=== PATIENT | male | born 1990 | race Caucasian/White ===

== ENCOUNTER 2018-03-26 08:51 | Emergency (ER) | payer BC ==
[~2018-03-26] VITALS: Ht 182.9 cm; Wt 90.7 kg
--- OUTSIDE RECORDS SUMMARY | 2018-03-26 08:54 | XMS REPORT | Encounter Summary ---
Author Organization Unknown Address [address] [place] [address] Phone [phone] Reason for Visit Medical Complaint Instructions 1. Acute bronchitis bronchitis: care instructions Bromfed DM 2 mg-30 mg-10 mg/5 mL syrup ProAir HFA 90 mcg/actuation aerosol inhaler Medrol (Ovi) 4 mg tablets in a dose pack 2. On examination - fever rapid strep group A, throat rapid flu (A+B) 3. Body mass index 25-29 - overweight learning about healthy weight 4. Elevated blood pressure elevated blood pressure: care instructions dash diet: care instructions blood pressure monitoring education 5. Smoker stopping smoking: care instructions Discussion Note: None recorded. Plan of Care Patient Instructions Your Care Instructions Bronchitis is inflammation of the bronchial tubes, which carry air to the lungs. The tubes swell and produce mucus, or phlegm. The mucus and inflamed bronchial tubes make you cough. You may have trouble breathing. Most cases of bronchitis are caused by viruses like those that cause colds. Antibiotics usually do not help and they may be harmful. Bronchitis usually develops rapidly and lasts about 2 to 3 weeks in otherwise healthy people. Follow-up care is a smith part of your treatment and safety. Be sure to make and go to all appointments, and call your doctor if you are having problems. It's also a good idea to know your test results and keep a list of the medicines you take. How can you care for yourself at home? Take all medicines exactly as prescribed. Call your doctor if you think you are having a problem with your medicine. Get some extra rest. Take an vjlv-bxf-aamyvaz pain medicine, such as acetaminophen (Tylenol), ibuprofen (Advil, Motrin), or naproxen (Aleve) to reduce fever and relieve body aches. Read and follow all instructions on the label. Do not take two or more pain medicines at the same time unless the doctor told you to. Many pain medicines have acetaminophen, which is Tylenol. Too much acetaminophen (Tylenol) can be harmful. Take an bwbc-nzs-tlcqhnt cough medicine that contains dextromethorphan to help quiet a dry, hacking cough so that you can sleep. Avoid cough medicines that have more than one active ingredient. Read and follow all instructions on the label. Breathe moist air from a humidifier, hot shower, or sink filled with hot water. The heat and moisture will thin mucus so you can cough it out. Do not smoke. Smoking can make bronchitis worse. If you need help quitting, talk to your doctor about stop-smoking programs and medicines. These can increase your chances of quitting for good. When should you call for help? Call 911 anytime you think you may need emergency care. For example, call if: You have severe trouble breathing. Call your doctor now or seek immediate medical care if: You have new or worse trouble breathing. You cough up dark brown or bloody mucus (sputum). You have a new or higher fever. You have a new rash. Watch closely for changes in your health, and be sure to contact your doctor if: You cough more deeply or more often, especially if you notice more mucus or a change in the color of your mucus. You are not getting better as expected. Reminders Provider Appointments None recorded. Lab Rapid Strep Group a, Throat 03/11/2018 [facility] Rapid Flu (A+B) 03/11/2018 [facility] Referral None recorded. Procedures None recorded. Surgeries None recorded. Imaging None recorded. Medications Name Start Date Bromfed DM 2 mg-30 mg-10 mg/5 mL syrup Take 10 mL every 4 hours by oral route. Medrol (Ovi) 4 mg tablets in a dose pack Take 1 dose pk by oral route. ProAir HFA 90 mcg/actuation aerosol inhaler Inhale 2 puffs every 4 hours by inhalation route. Medications Administered None recorded. Vitals Height Weight BMI Blood Pressure 6 ft 220 lbs 29.8 kg/m2 158/90 mm[Hg] Lab Results Date Name Specimen Result Interpretation Description Value Range Status Address Rapid Flu (A+B) Influenza a negative [facility]: [address] [place] [address] Influenza B negative [facility]: [address] [place] [address] Rapid Strep Group a, Throat Result negative [facility]: [address] [place] [address] Swab Location Left and Right tonsillar pillars [facility]: [address] [place] [address] Allergies Code Code System Name Reaction Severity Status Onset Sulfa (Sulfonamide Antibiotics) Active Problems No Known Problems Procedures Date Name Performed by Tonsillectomy Information not available Vaccine List Vaccine Type Tdap 01/02/2014 Social History Smoking Status Current Every Day Smoker Past Encounters 03/11/2018 Acute Bronchitis; On Examination - Fever; Body Mass Index 25-29 - Overweight; Elevated Blood Pressure; Smoker [facility], [facility] [address] [place] [address], Ph. History of Present Illness [id number] Reported By: Patient HPI: Location: head/sinuses, throat. Quality: productive cough, sore throat, nasal/sinus congestion. Duration: 4days. Severity: moderate. Onset/Timing: gradual. Context: no sick contacts, no foreign travel, smoker, asthma. Modifying factors: OTC medication. Associated Symptoms: no sputum production, no shortness of breath, no wheezing, no change in number of pillows needed to sleep at night, no sweats, no significant weight gain, no significant weight loss, no vomiting, no diarrhea, no rash, no nausea, no fever, no muscle aches, no headache, morning cough, sore throat Review of Systems:ROS as noted in the HPI Review of Systems Basic Reported By: Patient Physical Exam Adult Basic, Adult Male Complete Reported By: Patient Constitutional: General Appearance: healthy-appearing, well-nourished, well-developed, overweight. Level of Distress: NAD. Ambulation: ambulating normally Psychiatric: Mental Status: active and alert. Orientation: to time, to place, to person Wsq-Poao-Slaxo-Throat: Ears: no lesions on external ear, no outer ear tenderness, EACs clear, TMs clear. Hearing: no hearing loss. Nose: no lesions on external nose, nares patent, no septal deviation, nasal passages clear, no sinus tenderness, no nasal discharge. Lips, Teeth, and Gums: no mouth or lip ulcers, no bleeding gums, normal dentition. Oropharynx: moist mucous membranes, no erythema, no exudates, tonsils not enlarged Lungs: Respiratory effort: no dyspnea, no tachypnea, no use of accessory muscles, no intercostal retractions. Auscultation: breath sounds normal, good air movement Cardiovascular: Heart Auscultation: RRR, no murmurs
--- OUTSIDE RECORDS SUMMARY | 2018-03-26 08:54 | XMS REPORT | Continuity of Care Document ---
Author Author [facility] Interface Address Unknown Phone Unavailable Problems Problem Status Onset Date Classification Date Reported Comments Source Acute bronchitis 03/11/2018 Diagnosis 03/11/2018 [facility] Smoker 03/11/2018 Diagnosis 03/11/2018 [facility] On examination - fever 03/11/2018 Diagnosis 03/11/2018 [facility] Elevated blood pressure 03/11/2018 Diagnosis 03/11/2018 [facility] Body mass index 25-29 - overweight 03/11/2018 Diagnosis 03/11/2018 [facility] Discharge Diagnosis: Other hydrocele 06/08/2015 06/11/2015 [facility] TESTICULAR PAIN Active 06/08/2015 [facility] Testicular torsion<sup>1</sup> Resolved Problem 06/11/2015 age 6 [facility] Medications Medication Details Route Status Patient Instructions Ordering Provider Order Date Source Brompheniramine Maleate 0.4 MG/ML / Dextromethorphan Hydrobromide 2 MG/ML / Pseudoephedrine Hydrochloride 6 MG/ML Oral Solution [Bromfed DM] Bromfed DM 2 mg-30 mg-10 mg/5 mL syrup Take 10 mL every 4 hours by oral route. Active [facility] Medrol (Ovi) 4 mg tablets in a dose pack Medrol (Ovi) 4 mg tablets in a dose pack Take 1 dose pk by oral route. Active [facility] Albuterol 0.09 MG/ACTUAT Metered Dose Inhaler ProAir HFA 90 mcg/actuation aerosol inhaler Inhale 2 puffs every 4 hours by inhalation route. Active [facility] Allergies, Adverse Reactions, Alerts Substance Category Reaction Severity Reaction type Status Date Reported Comments Source Sulfa (Sulfonamide Antibiotics) Allergy to substance 03/11/2018 [facility] sulfa drugs Assertion Drug allergy Active [facility] Immunizations Immunization Date Given Site Status Last Updated Comments Source Tdap 01/02/2014 completed [facility] Results Order Name Results Value Reference Range Date Interpretation Comments Source Influenza A negative 03/11/2018 [facility] Influenza B negative 03/11/2018 [facility] RESULT negative 03/11/2018 [facility] SWAB LOCATION Left and Right tonsillar pillars 03/11/2018 [facility] URINE AND STOOL UA Urobilinogen <=1.0 mg/dL 0.1 - 1.0 06/08/2015 [facility] URINE AND STOOL UA RBC null 0 - 2 06/08/2015 [facility] URINE AND STOOL UA Bili Negative *NA* (06/08/15 8:17 AM) Negative 06/08/2015 [facility] URINE AND STOOL UA Ketones Negative mg/dL Negative mg/dL 06/08/2015 [facility] URINE AND STOOL UA Glucose Negative mg/dL Negative mg/dL 06/08/2015 [facility] URINE AND STOOL UA Sq Epi Occasional /LPF Few /LPF 06/08/2015 [facility] URINE AND STOOL UA WBC 1 /HPF 0 - 5 06/08/2015 [facility] URINE AND STOOL UA Nitrite Negative (06/08/15 8:17 AM) Negative 06/08/2015 [facility] URINE AND STOOL UA Blood Negative (06/08/15 8:17 AM) Negative 06/08/2015 [facility] URINE AND STOOL UA Protein Negative mg/dL Negative mg/dL 06/08/2015 [facility] URINE AND STOOL UA pH 5.0 5.0 - 8.0 06/08/2015 [facility] URINE AND STOOL UA Spec Grav 1.019 <=1.030 06/08/2015 [facility] URINE AND STOOL UA Turbidity Clear (06/08/15 8:17 AM) Clear 06/08/2015 [facility] URINE AND STOOL UA Color Yellow *NA* (06/08/15 8:17 AM) Yellow 06/08/2015 [facility] URINE AND STOOL UA Leuk Est Negative (06/08/15 8:17 AM) Negative 06/08/2015 [facility] Scrotal/Testicle w Doppler US Scrotal/Testicle w Doppler US Study: Scrotal/Testicle w Doppler US Clinical Indication: Pain and swelling Comparison: None TECHNIQUE: Sonographic evaluation of the scrotum and testes was performed using high resolution B-mode imaging as well as pulse and color Doppler imaging. FINDINGS: TESTES: The right testicle measures 4.3 x 2.3 x 2.9 cm. The left testicle measures 4.3 x 2.1 x 2.7 cm. There is normal bilateral testicular contour and morphology. There are no testicular masses or testicular calcifications. The Doppler images of the testicles show normal blood flow. EPIDIDYMIDES: Bilateral epididymal head, body and tail regions are unremarkable. The right epididymal head measures 1.0 x 0.9 x 1.1 cm. The left epididymal head measures 1.2 x 0.7 x 1.3 cm. SCROTUM: Miniscule left-sided hydrocele is seen. There is no evidence of varicoceles. There is no scrotal edema. IMPRESSION: 1. No evidence of testicular torsion. 2. Miniscule left-sided hydrocele. SL: [id number] 06/08/2015 - - Read by: Manuelito Diaz MD Dictated Date/time: 06/08/15 09:01 Electronically Signed by: Manuelito Diaz MD 06/08/15 09:03 FINAL REPORT [facility] Vital Signs Vital Sign Value Date Comments Source Diastolic (mm Hg) 90 [facility]11[facility] Height 72 03/11/2018 [facility] Systolic (mm Hg) 158 03/11/2018 [facility] Weight 220 03/11/2018 [facility] Respitory Rate 18 06/08/2015 [facility] Systolic (mm Hg) 149 06/08/2015 [facility] Diastolic (mm Hg) 81 06/08/2015 [facility] Temperature Oral (F) 99.1 F 06/08/2015 [facility] Heart Rate 98 06/08/2015 [facility] Weight 102.273 06/08/2015 [facility] BMI Calculated 31.45 06/08/2015 [facility] Systolic (mm Hg) 152 06/08/2015 [facility] Diastolic (mm Hg) 91 06/08/2015 [facility] Heart Rate 108 06/08/2015 [facility] Respitory Rate 16 06/08/2015 [facility] Temperature Oral (F) 99.2 F 06/08/2015 [facility] Height 180.34 cm 06/08/2015 [facility] Encounters Location Location Details Encounter Type Encounter Number Reason For Visit Attending Provider ADM Date DC Date Status Source [facility] [id number] Saeid Murry 06/08/2015 06/08/2015 [facility] [place] - [facility] - [id number]: [address] [place] [address], Ph. [id number] Ashley Goddard 03/11/2018 [facility] Procedures Procedure Code Date Perfomer Comments Source Tonsillectomy [facility]
--- OUTSIDE RECORDS SUMMARY | 2018-03-26 08:54 | XMS REPORT | Summary of Care ---
Author Author [facility] Organization [facility] Address Unknown Phone Unavailable Encounter MANDY Kelley(SERGIO) [id number] Date(s): 06/08/15 - 06/08/15 [facility] [address] [place] [address]- [phone] Discharge Diagnosis: Other hydrocele Discharge Disposition: Home Attending Physician: Saeid Murry MD Vital Signs Most recent to 1 2 oldest [Reference Range]: Height 180.34 cm (06/08/15 8:03 AM) Temperature Oral 99.1 DegF 99.2 DegF [96.4-99.1 DegF] (06/08/15 10:03 AM) *HI* (06/08/15 8:03 AM) Blood Pressure 149/81 mmHg 152/91 mmHg [90-140/60-90 mmHg] *HI* *HI* (06/08/15 10:03 AM) (06/08/15 8:03 AM) Respiratory Rate 18 BRMIN 16 BRMIN [14-20 BRMIN] (06/08/15 10:03 AM) (06/08/15 8:03 AM) Peripheral Pulse 98 bpm 108 bpm Rate [60-100 bpm] (06/08/15 10:03 AM) *HI* (06/08/15 8:03 AM) Weight 102.273 kg (06/08/15 8:03 AM) Body Mass Index 31.45 m2 (06/08/15 8:03 AM) Problem List Condition Effective Dates Status Health Status Informant Testicular Resolved torsion(Confirmed)1 1age 6 Allergies, Adverse Reactions, Alerts Substance Reaction Severity Status sulfa drugs Active Medications No data available for this section Results URINE AND STOOL Most recent to 1 oldest [Reference Range]: UA Turbidity [Clear] Clear (06/08/15 8:17 AM) UA Color [Yellow] Yellow *NA* (06/08/15 8:17 AM) UA pH [5.0-8.0] 5.0 (06/08/15 8:17 AM) UA Spec Grav 1.019 [<=1.030] (06/08/15 8:17 AM) UA Glucose [Negative Negative mg/dL mg/dL] *NA* (06/08/15 8:17 AM) UA Blood [Negative] Negative (06/08/15 8:17 AM) UA Ketones [Negative Negative mg/dL mg/dL] *NA* (06/08/15 8:17 AM) UA Protein [Negative Negative mg/dL mg/dL] (06/08/15 8:17 AM) UA Urobilinogen <=1.0 mg/dL [0.1-1.0 mg/dL] *NA* (06/08/15 8:17 AM) UA Bili [Negative] Negative *NA* (06/08/15 8:17 AM) UA Leuk Est Negative [Negative] (06/08/15 8:17 AM) UA Nitrite Negative [Negative] (06/08/15 8:17 AM) UA WBC [0-5 /HPF] 1 /HPF (06/08/15 8:17 AM) UA RBC [0-2 /HPF] <1 /HPF (06/08/15 8:17 AM) UA Sq Epi [Few /LPF] Occasional /LPF *NA* (06/08/15 8:17 AM) Immunizations No data available for this section Procedures No data available for this section Social History Social History Type Response Smoking Status Current every day smoker; Exposure to Tobacco Smoke None; Cigarette Smoking Last 365 Days Yes; Reg Smoking Cessation Counseling No Assessment and Plan No data available for this section
--- NOTE | 2018-03-26 09:15 | NUR ---
PT TO ROOM 6, DR. PRIETO IN ROOM ASSESSING PT AT THIS TIME
[2018-03-26] MEDS ORDERED: LISINOPRIL 10 MG TAB PO ONE (09:30)
[2018-03-26 10:27] LABS: BASOPHILS # (AUTO) 0.1 (0.0-0.1); BASOPHILS % 0.7 % (0.0-1.0); EOSINOPHILS # (AUTO) 0.1 (0.0-0.4); EOSINOPHILS % 1.2 % (0.0-6.0); HEMATOCRIT 41.3 % (38.2-49.6); HEMOGLOBIN 13.9 g/dL (14.0-18.0); LYMPHOCYTES # (AUTO) 2.4 (1.0-3.2); LYMPHOCYTES % 27.5 % (18.0-39.1); MEAN CORPUSCULAR HEMOGLOBIN 30.2 pg (28-32); MEAN CORPUSCULAR HGB CONC 33.7 g/dL (31-35); MEAN CORPUSCULAR VOLUME 89.6 fL (81-99); MONOCYTES # (AUTO) 0.6 (0.2-0.8); MONOCYTES % 6.5 % (4.4-11.3); NEUTROPHILS # (AUTO) 5.5 (2.1-6.9); NEUTROPHILS % 63.8 % (38.7-80.0); PLATELET COUNT 247 x10e3/uL (140-360); RED BLOOD COUNT 4.61 x10e6/uL (4.3-5.7); RED CELL DISTRIBUTION WIDTH 11.9 % (11.7-14.4)
[2018-03-26 10:59] LABS: ANION GAP 16.7 mmol/L (8-16); BLOOD UREA NITROGEN 10 mg/dL (7-26); BUN/CREATININE RATIO 11 (6-25); CALCIUM 9.5 mg/dL (8.4-10.2); CARBON DIOXIDE 22 mmol/L (22-29); CHLORIDE 103 mmol/L (98-107); CREATINE KINASE 689 IU/L (30-200); CREATININE, SERUM 0.91 mg/dL (0.72-1.25); EST GLOMERULAR FILTRATION RATE > 60 ML/MIN (60-); GLUCOSE 94 mg/dL (74-118); POTASSIUM 3.7 mmol/L (3.5-5.1); SODIUM 138 mmol/L (136-145)
[2018-03-26 11:38] VITALS: BP 141/85
== END 2018-03-26 11:55 | disposition home or self-care (01) ==
LOC: ER 10:51
DX: I10 Essential (primary) hypertension (principal)
CPT/HCPCS: 36415; 80048; 82550; 82553; 84484; 85025; 93005; 99283

== ENCOUNTER 2018-06-20 15:15 | Emergency (ER) | payer BC ==
[~2018-06-20] VITALS: Ht 182.9 cm; Wt 93.0 kg
--- OUTSIDE RECORDS SUMMARY | 2018-06-20 15:17 | XMS REPORT | Continuity of Care Document ---
Author Author [facility] Interface Address Unknown Phone Unavailable Problems Problem Status Onset Date Classification Date Reported Comments Source Acute bronchitis 03/11/2018 Diagnosis 03/11/2018 [facility] Smoker 03/11/2018 Diagnosis 03/11/2018 [facility] On examination - fever 03/11/2018 Diagnosis 03/11/2018 [facility] Elevated blood pressure 03/11/2018 Diagnosis 03/11/2018 [facility] Body mass index 25-29 - overweight 03/11/2018 Diagnosis 03/11/2018 [facility] Discharge Diagnosis: Other hydrocele 06/08/2015 06/11/2015 [facility] TESTICULAR PAIN Active 06/08/2015 [facility] Testicular torsion<sup>1</sup> Resolved Problem 06/11/2015 age 6 [facility] Medications Medication Details Route Status Patient [...] [facility] sulfa drugs Assertion Drug allergy Active [facility] Immunizations Immunization Date Given Site Status Last Updated Comments Source Tdap 01/02/2014 completed [facility] Results Order Name Results Value Reference Range Date Interpretation Comments Source Influenza A negative 03/11/2018 [facility] Influenza B negative 03/11/2018 [facility] RESULT negative 03/11/2018 [facility] SWAB LOCATION Left and Right tonsillar pillars 03/11/2018 [facility] URINE AND STOOL UA Urobilinogen <=1.0 mg/dL 0.1 - 1.0 06/08/2015 [facility] URINE AND STOOL UA RBC null 0 - 2 06/08/2015 [facility] URINE AND STOOL UA Bili Negative *NA* (06/08/15 8:17 AM) Negative 06/08/2015 [facility] URINE AND STOOL UA Ketones Negative mg/dL Negative mg/dL 06/08/2015 [facility] URINE AND STOOL UA Glucose Negative mg/dL Negative mg/dL 06/08/2015 [facility] URINE AND STOOL UA Sq Epi Occasional /LPF Few /LPF 06/08/2015 [facility] URINE AND STOOL UA WBC 1 /HPF 0 - 5 06/08/2015 [facility] URINE AND STOOL UA Nitrite Negative (06/08/15 8:17 AM) Negative 06/08/2015 [facility] URINE AND STOOL UA Blood Negative (06/08/15 8:17 AM) Negative 06/08/2015 [facility] URINE AND STOOL UA Protein Negative mg/dL Negative mg/dL 06/08/2015 [facility] URINE AND STOOL UA pH 5.0 5.0 - 8.0 06/08/2015 [facility] URINE AND STOOL UA Spec Grav 1.019 <=1.030 06/08/2015 [facility] URINE AND STOOL UA Turbidity Clear (06/08/15 8:17 AM) Clear 06/08/2015 [facility] URINE AND STOOL UA Color Yellow *NA* (06/08/15 8:17 AM) Yellow 06/08/2015 [facility] URINE AND STOOL UA Leuk Est Negative (06/08/15 8:17 AM) Negative 06/08/2015 [facility] Scrotal/Testicle w Doppler US Scrotal/Testicle w [...] testicular torsion. 2. Miniscule left-sided hydrocele. SL: [id number] 06/08/2015 - - Read by: Manuelito Diaz MD Dictated Date/time: 06/08/15 09:01 Electronically Signed by: Manuelito Diaz MD 06/08/15 09:03 FINAL REPORT [facility] Vital Signs Vital Sign Value Date Comments Source Diastolic (mm Hg) 90 [facility] 72 03/11/2018 [facility] Systolic (mm Hg) 158 [facility]/11[facility] Weight 220 03/11/2018 [facility] Respitory Rate 18 06/08/2015 [facility] Systolic (mm Hg) 149 06/08/2015 [facility] Diastolic (mm Hg) 81 06/08/2015 [facility] Temperature Oral (F) 99.1 F 06/08/2015 [facility] Heart Rate 98 06/08/2015 [facility] Weight 102.273 06/08/2015 [facility] BMI Calculated 31.45 06/08/2015 [facility] Systolic (mm Hg) 152 06/08/2015 [facility] Diastolic (mm Hg) 91 06/08/2015 [facility] Heart Rate 108 06/08/2015 [facility] Respitory Rate 16 06/08/2015 [facility] Temperature Oral (F) 99.2 F 06/08/2015 [facility] Height 180.34 cm 06/08/2015 [facility] Encounters Location Location Details Encounter Type Encounter Number Reason For Visit Attending Provider ADM Date DC Date Status Source [facility] [id number] Saeid Murry 06/08/2015 06/08/2015 [facility] [place] - [facility] - [id number]: [address] [place] [address], Ph. [id number] Ashley Goddard 03/11/2018 [facility] Procedures Procedure Code Date Perfomer Comments Source Tonsillectomy [facility]
[2018-06-20] MEDS ORDERED: ASPIRIN 81 MG CHEW TAB PO STA (15:52)
[2018-06-20] MEDS ORDERED: CLONIDINE HCL 0.1 MG TAB PO NR (16:15)
[2018-06-20 16:42] LABS: BASOPHILS # (AUTO) 0.1 (0.0-0.1); BASOPHILS % 0.8 % (0.0-1.0); EOSINOPHILS # (AUTO) 0.1 (0.0-0.4); HEMATOCRIT 45.2 % (38.2-49.6); HEMOGLOBIN 15.4 g/dL (14.0-18.0); LYMPHOCYTES # (AUTO) 2.1 (1.0-3.2); LYMPHOCYTES % 23.4 % (18.0-39.1); MEAN CORPUSCULAR HEMOGLOBIN 30.2 pg (28-32); MEAN CORPUSCULAR HGB CONC 34.1 g/dL (31-35); MEAN CORPUSCULAR VOLUME 88.6 fL (81-99); MONOCYTES # (AUTO) 0.8 (0.2-0.8); MONOCYTES % 8.4 % (4.4-11.3); NEUTROPHILS % 66.1 % (38.7-80.0); PLATELET COUNT 267 x10e3/uL (140-360)
[2018-06-20 16:48] LABS: AMPHETAMINES SCREEN,URINE NEGATIVE (NEGATIVE); BENZODIAZEPINES SCREEN,URINE NEGATIVE (NEGATIVE); CLARITY,URINE SL CLOUDY (CLEAR); COLOR,URINE YELLOW (YELLOW); LEUKOCYTE ESTERASE ,URINE NEGATIVE (NEGATIVE); NITRITE,URINE NEGATIVE (NEGATIVE); PHENCYCLIDINE SCREEN,URINE NEGATIVE (NEGATIVE); PROTEIN,URINE DIPSTICK 1+ (NEGATIVE)
[2018-06-20 16:49] LABS: BILIRUBIN,URINE NEGATIVE (NEGATIVE); KETONES,URINE NEGATIVE (NEGATIVE); URINE UROBILINOGEN 0.2 mg/dL (0.2 - 1)
[2018-06-20 17:03] LABS: ALANINE AMINOTRANSFERASE 30 IU/L (0-55); ALBUMIN 4.5 g/dL (3.5-5.0); ALBUMIN/GLOBULIN RATIO 1.2 (0.8-2.0); ALKALINE PHOSPHATASE 68 IU/L (40-150); AMORPHOUS SEDIMENT,URINE FEW (FEW); ANION GAP 16.7 mmol/L (8-16); BACTERIA,URINE FEW /HPF; BLOOD UREA NITROGEN 19 mg/dL (7-26); BUN/CREATININE RATIO 18 (6-25); CALCIUM 9.8 mg/dL (8.4-10.2); CARBON DIOXIDE 23 mmol/L (22-29); CHLORIDE 104 mmol/L (98-107); CREATINE KINASE 397 IU/L (30-200); CREATININE, SERUM 1.08 mg/dL (0.72-1.25); EST GLOMERULAR FILTRATION RATE > 60 ML/MIN (60-); GLUCOSE 98 mg/dL (74-118); HYALINE CASTS 0-1 (0-1); POTASSIUM 3.7 mmol/L (3.5-5.1); SODIUM 140 mmol/L (136-145)
--- NOTE | 2018-06-20 17:05 | Diagnostic Imaging Report ---
Examination: CT BRAIN WITHOUT CONTRAST History:Dizziness. Elevated blood pressure. Comparison studies:None Technique: Axial images were obtained from the skull base to the vertex. Coronal and sagittal images reconstructed from the axial data. Dose modulation, iterative reconstruction, and/or weight based adjustment of the mA/kV was utilized to reduce the radiation dose to as low as reasonably achievable. Intravenous contrast: None Findings: Scalp: No abnormalities. Bones: No fractures, blastic or lytic lesions. Brain sulci: Appropriate for age. Ventricles: Normal in size and configuration. No hydrocephalus. Extra-axial space: No abnormalities. Parenchyma: Hypoplastic vermis. No masses, hemorrhage, or acute or chronic cortical based vascular insults.. Sellar/suprasellar region: No abnormalities. Craniocervical junction: Patent foramen magnum. No Chiari one malformation. Incidental findings: None. Impression: No acute intracranial abnormalities. Signed by: Dr. Marjan Kothari M.D. on 06/20/2018 5:02 PM
--- NOTE | 2018-06-20 17:09 | Diagnostic Imaging Report ---
EXAM: CHEST SINGLE (PORTABLE) DATE: 06/20/2018 3:52 PM INDICATION: Chest pain COMPARISON: None FINDINGS: Lines and tubes: None Heart size normal. No focal pulmonary opacity, pleural effusion or pneumothorax. Lung apices are not completely included on the image. Upper abdomen unremarkable with no free air. No acute bony abnormality. IMPRESSION: No evidence for acute disease. Signed by: Dr. Antonio Rojas M.D. on 06/20/2018 5:06 PM
[2018-06-20] MEDS ORDERED: LISINOPRIL10 MG PO (18:04)
== END 2018-06-20 20:26 | disposition home or self-care (01) ==
LOC: ER 15:15
DX: G44.1 Vascular headache, not elsewhere classified (principal); I10 Essential (primary) hypertension; F12.90 Cannabis use, unspecified, uncomplicated
CPT/HCPCS: 36415; 70450; 71045; 80053; 80307; 81001; 82550; 82553; 84484; 85025; 93005

== ENCOUNTER 2018-11-13 15:31 | Emergency (ER) | payer BC ==
[~2018-11-13] VITALS: Ht 208.3 cm; Wt 93.0 kg
[~2018-11-13 15:31] MED LIST: LISINOPRIL10 MG PO
--- OUTSIDE RECORDS SUMMARY | 2018-11-13 15:33 | XMS REPORT | Summary of Care ---
Author Author Kartik HOANG Claribel Patel Unknown Address Unknown Phone Unavailable Care Team Providers Care Backwinder Name Role Phone WOLF DUMONT M.D. 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 Quantity: 30 WOLF DUMONT M.D. * Start : 21-Jul-2018 Active diphenhydrAMINE HCl - 25 MG Oral Tablet TAKE 1 TABLET AT BEDTIME FOR SLEEP * Refills: 0 Active Atenolol 25 MG Oral Tablet TAKE 1 TABLET TWICE DAILY. * Quantity: 60 Refills: 1 WOLF DUMONT M.D. * Start : 06-Jul-2018 Active Allergies and Adverse Reactions Name Dates Details Sulfa Drugs (Allergy) Status: Active Past Medical History Name Dates Details History of hypertension (V12.59, Z86.79) Status: Resolved Procedures Procedure Dates Details History of Tonsillectomy Completed History of Foot Surgery Right Completed Immunization Name Dates Details Varicella Disease on: Apr-1992 Family History Name Dates Details Family history of type 2 diabetes mellitus (V18.0, Z83.3) Status: Active Family history of hypertension (V17.49, Z82.49) Status: Active Name Dates Details Family history of malignant neoplasm of prostate (V16.42, Z80.42) Status: Active Family history of malignant neoplasm of skin (V16.8, Z80.8) Status: Active Social History Name Dates Details Unknown if ever smoked Vital Signs Date Test Result Details No Known Vitals to report Results Date Description Value Details Results not documented Plan of Care Name Dates Details Planned Observations Planned Goals not documented Interventions Provided Medication Changes* Atenolol 25 MG Oral Tablet - Renew Instructions Name Dates Details Instructions not documented Encounters Appointment; WOLF DUMONT M.D. Encounter Diagnosis: Problem not documented On: 06-Jul-2018 13:45 Appointment; WOLF DUMONT M.D. Encounter Diagnosis: Problem not documented On: 03-Aug-2018 14:30
--- OUTSIDE RECORDS SUMMARY | 2018-11-13 15:33 | XMS REPORT | Continuity of Care Document ---
Author Author [employer] Address Unknown Phone Unavailable Care Team Providers Care Planning Supervisor Name Role Phone [employer] Unavailable Unavailable Problems Problem Status Onset Date Classification Date Reported Comments Source Acute bronchitis 03/11/2018 Diagnosis 03/11/2018 [facility] Smoker 03/11/2018 Diagnosis 03/11/2018 [facility] On examination - fever 03/11/2018 Diagnosis 03/11/2018 [facility] Elevated blood pressure 03/11/2018 Diagnosis 03/11/2018 [facility] Body mass index 25-29 - overweight 03/11/2018 Diagnosis 03/11/2018 [facility] Medications Medication Details Route Status Patient Instructions Ordering Provider Order Date Source Lisinopril 10 Mg Tablet Daily Active [place] 06/20/2018 [facility] Brompheniramine Maleate 0.4 MG/ML / Dextromethorphan Hydrobromide [...] Date Reported Comments Source Sulfa (Sulfonamide Antibiotics) HIVES Intermediate Propensity to adverse reactions Active 06/20/2018 [facility] Immunizations Immunization Date Given Site Status Last Updated Comments Source Tdap 01/02/2014 completed [facility] Results Order Name Results Value Reference Range Date Interpretation Comments Source Blood leukocytes automated count (number/volume) 9.05 4.8 - 10.8 06/20/2018 [facility] Blood erythrocytes automated count (number/volume) 5.10 4.3 - 5.7 06/20/2018 [facility] Blood hemoglobin measurement (moles/volume) 15.4 14.0 - 18.0 06/20/2018 [facility] Automated blood hematocrit (volume fraction) 45.2 38.2 - 49.6 06/20/2018 [facility] Automated erythrocyte mean corpuscular volume 88.6 81 - 99 06/20/2018 [facility] Automated erythrocyte mean corpuscular hemoglobin (mass per erythrocyte) 30.2 28 - 32 06/20/2018 [facility] Automated erythrocyte mean corpuscular hemoglobin concentration measurement (mass/volume) 34.1 31 - 35 06/20/2018 [facility] RDW BldCo-Rto 12.0 11.7 - 14.4 06/20/2018 [facility] Automated blood platelet count (count/volume) 267 140 - 360 06/20/2018 [facility] Automated blood segmented neutrophil count as percentage of total leukocytes 66.1 38.7 - 80.0 06/20/2018 [facility] Automated blood lymphocyte count as percentage ot total leukocytes 23.4 18.0 - 39.1 06/20/2018 [facility] Automated blood monocyte count as percentage of total leukocytes 8.4 4.4 - 11.3 06/20/2018 [facility] Automated blood eosinophil count as percentage of total leukocytes 1.0 0.0 - 6.0 06/20/2018 [facility] Automated blood basophil count as percentage of total leukocytes 0.8 0.0 - 1.0 06/20/2018 [facility] IM GRANULOCYTES % 0.3 0.0 - 1.0 06/20/2018 [facility] Automated blood neutrophil count 6.0 2.1 - 6.9 06/20/2018 [facility] Blood lymphocytes count (number/volume) 2.1 1.0 - 3.2 06/20/2018 [facility] Blood monocytes automated count (number/volume) 0.8 0.2 - 0.8 06/20/2018 [facility] Automated blood eosinophil count 0.1 0.0 - 0.4 06/20/2018 [facility] Automated blood basophil count (count/volume) 0.1 0.0 - 0.1 06/20/2018 [facility] Absolute Immature Granulocyte (auto 0.03 0 - 0.1 06/20/2018 [facility] Urine color determination YELLOW YELLOW 06/20/2018 [facility] Urine clarity SL CLOUDY CLEAR 06/20/2018 [facility] Specific gravity of Urine by Test strip 1.025 1.010 - 1.025 06/20/2018 [facility] Urine pH measurement by automated test strip 6 5 - 7 06/20/2018 [facility] Urine leukocyte esterase detection by dipstick NEGATIVE NEGATIVE 06/20/2018 [facility] Urine nitrite detection NEGATIVE NEGATIVE 06/20/2018 [facility] Urine protein measurement by test strip (mass/volume) 1+ NEGATIVE 06/20/2018 [facility] Urine glucose detection NEGATIVE NEGATIVE 06/20/2018 [facility] Urine ketones detection by automated test strip NEGATIVE NEGATIVE 06/20/2018 [facility] Urine opiates screening test NEGATIVE NEGATIVE 06/20/2018 [facility] Barbiturates screen, urine NEGATIVE NEGATIVE 06/20/2018 [facility] Urine phencyclidine detection by screening method NEGATIVE NEGATIVE 06/20/2018 [facility] Urine amphetamines detection by screen method > 1000 ng/mL NEGATIVE NEGATIVE 06/20/2018 [facility] Urine Methamphetamines Screen NEGATIVE NEGATIVE 06/20/2018 [facility] Urine benzodiazepines detection by screening method NEGATIVE NEGATIVE 06/20/2018 [facility] Urine cocaine measurement (mass/volume) NEGATIVE NEGATIVE 06/20/2018 [facility] Urine cannabinoids detection by screening method NEGATIVE NEGATIVE 06/20/2018 [facility] Urine methadone screen NEGATIVE NEGATIVE 06/20/2018 [facility] Urine urobilinogen measurement by test strip (mass/volume) 0.2 0.2 - 1 06/20/2018 [facility] Urine total bilirubin measurement (mass/volume) NEGATIVE NEGATIVE 06/20/2018 [facility] Urine erythrocytes detection NEGATIVE NEGATIVE 06/20/2018 [facility] Automated urine sediment leukocyte count by microscopy (number/high power field) NONE 0 - 5 06/20/2018 [facility] Erythrocytes detection in urine sediment by light microscopy NONE 0 - 5 06/20/2018 [facility] Bacteria detection in urine sediment by light microscopy FEW NONE 06/20/2018 [facility] Epithelial cells detection in urine sediment by light microscopy NONE NONE 06/20/2018 [facility] Amorphous sediment detection in urine sediment by light microscopy FEW FEW 06/20/2018 [facility] Hyaline casts detection in urine sediment by light microscopy 0-1 0 - 1 06/20/2018 [facility] Serum or plasma sodium measurement (moles/volume) 140 136 - 145 06/20/2018 [facility] Serum or plasma potassium measurement (moles/volume) 3.7 3.5 - 5.1 06/20/2018 [facility] Serum or plasma chloride measurement (moles/volume) 104 98 - 107 06/20/2018 [facility] Serum or plasma carbon dioxide, total measurement (moles/volume) 23 22 - 29 06/20/2018 [facility] Serum or plasma anion gap 16.7 8 - 16 06/20/2018 [facility] Serum or plasma urea nitrogen measurement (mass/volume) 19 7 - 26 06/20/2018 [facility] Serum or plasma creatinine measurement (mass/volume) 1.08 0.72 - 1.25 06/20/2018 [facility] Serum or plasma urea nitrogen/creatinine mass ratio 18 6 - 25 06/20/2018 [facility] Estimated glomerular filtration rate (GFR) determination > 60 60 06/20/2018 [facility] Glucose measurement 98 74 - 118 06/20/2018 [facility] Serum or plasma calcium measurement (mass/volume) 9.8 8.4 - 10.2 06/20/2018 [facility] Serum or plasma total bilirubin measurement (mass/volume) 0.7 0.2 - 1.2 06/20/2018 [facility] Aspartate Amino Transf (AST/SGOT) 34 5 - 34 06/20/2018 [facility] Serum or plasma alanine aminotransferase measurement (enzymatic activity/volume) 30 0 - 55 06/20/2018 [facility] Serum or plasma protein measurement (mass/volume) 8.2 6.5 - 8.1 06/20/2018 [facility] Serum or plasma albumin measurement (mass/volume) 4.5 3.5 - 5.0 06/20/2018 [facility] Plasma globulin measurement (mass/volume) 3.7 2.3 - 3.5 06/20/2018 [facility] Serum or plasma albumin/globulin mass ratio 1.2 0.8 - 2.0 06/20/2018 [facility] Serum or plasma alkaline phosphatase measurement (enzymatic activity/volume) 68 40 - 150 06/20/2018 [facility] Serum or plasma creatine kinase measurement (enzymatic activity/volume) 397 30 - 200 06/20/2018 [facility] Serum or plasma creatine kinase MB measurement (mass/volume) 2.90 0 - 5.0 06/20/2018 [facility] Troponin I measurement by highly sensitive enzyme immunoassay 0.005 0 - 0.300 06/20/2018 [facility] Blood leukocytes automated count (number/volume) 8.64 4.8 - 10.8 03/26/2018 [facility] Blood erythrocytes automated count (number/volume) 4.61 4.3 - 5.7 03/26/2018 [facility] Blood hemoglobin measurement (moles/volume) 13.9 14.0 - 18.0 03/26/2018 [facility] Automated blood hematocrit (volume fraction) 41.3 38.2 - 49.6 03/26/2018 [facility] Automated erythrocyte mean corpuscular volume 89.6 81 - 99 03/26/2018 [facility] Automated erythrocyte mean corpuscular hemoglobin (mass per erythrocyte) 30.2 28 - 32 03/26/2018 [facility] Automated erythrocyte mean corpuscular hemoglobin concentration measurement (mass/volume) 33.7 31 - 35 03/26/2018 [facility] RDW BldCo-Rto 11.9 11.7 - 14.4 03/26/2018 [facility] Automated blood platelet count (count/volume) 247 140 - 360 03/26/2018 [facility] Automated blood segmented neutrophil count as percentage of total leukocytes 63.8 38.7 - 80.0 03/26/2018 [facility] Automated blood lymphocyte count as percentage ot total leukocytes 27.5 18.0 - 39.1 03/26/2018 [facility] Automated blood monocyte count as percentage of total leukocytes 6.5 4.4 - 11.3 03/26/2018 [facility] Automated blood eosinophil count as percentage of total leukocytes 1.2 0.0 - 6.0 03/26/2018 [facility] Automated blood basophil count as percentage of total leukocytes 0.7 0.0 - 1.0 03/26/2018 [facility] IM GRANULOCYTES % 0.3 0.0 - 1.0 03/26/2018 [facility] Automated blood neutrophil count 5.5 2.1 - 6.9 03/26/2018 [facility] Blood lymphocytes count (number/volume) 2.4 1.0 - 3.2 03/26/2018 [facility] Blood monocytes automated count (number/volume) 0.6 0.2 - 0.8 03/26/2018 [facility] Automated blood eosinophil count 0.1 0.0 - 0.4 03/26/2018 [facility] Automated blood basophil count (count/volume) 0.1 0.0 - 0.1 03/26/2018 [facility] Absolute Immature Granulocyte (auto 0.03 0 - 0.1 03/26/2018 [facility] Serum or plasma sodium measurement (moles/volume) 138 136 - 145 03/26/2018 [facility] Serum or plasma potassium measurement (moles/volume) 3.7 3.5 - 5.1 03/26/2018 [facility] Serum or plasma chloride measurement (moles/volume) 103 98 - 107 03/26/2018 [facility] Serum or plasma carbon dioxide, total measurement (moles/volume) 22 22 - 29 03/26/2018 [facility] Serum or plasma anion gap 16.7 8 - 16 03/26/2018 [facility] Serum or plasma urea nitrogen measurement (mass/volume) 10 7 - 26 03/26/2018 [facility] Serum or plasma creatinine measurement (mass/volume) 0.91 0.72 - 1.25 03/26/2018 [facility] Serum or plasma urea nitrogen/creatinine mass ratio 11 6 - 25 03/26/2018 [facility] Estimated glomerular filtration rate (GFR) determination > 60 60 03/26/2018 [facility] Glucose measurement 94 74 - 118 03/26/2018 [facility] Serum or plasma calcium measurement (mass/volume) 9.5 8.4 - 10.2 03/26/2018 [facility] Serum or plasma creatine kinase measurement (enzymatic activity/volume) 689 30 - 200 03/26/2018 [facility] Serum or plasma creatine kinase MB measurement (mass/volume) 10.00 0 - 5.0 03/26/2018 [facility] Troponin I measurement by highly sensitive enzyme immunoassay 0.152 0 - 0.300 03/26/2018 [facility] Influenza A negative 03/11/2018 [facility] Influenza B negative 03/11/2018 [facility] RESULT negative 03/11/2018 [facility] SWAB LOCATION Left and Right tonsillar pillars 03/11/2018 [facility] Pathology Reports No Data Provided for This Section Diagnostic Reports No Data Provided for This Section Consultation Notes No Data Provided for This Section Discharge Summaries No Data Provided for This Section History and Physicals No Data Provided for This Section Vital Signs Vital Sign Value Date Comments Source Diastolic (mm Hg) 90 03/11/2018 [facility] Height 72 03/11/2018 [facility] Systolic (mm Hg) 158 03/11/2018 [facility] Weight 220 03/11/2018 [facility] Encounters Location Location Details Encounter Type Encounter Number Reason For Visit Attending Provider ADM Date DC Date Status Source [place] - [id number] Ashley Goddard, [facility]: [address] [place] [address], Ph. [id number] Ashley Goddard 03/11/2018 [facility] Departed Emergency Room [id number] LOLI PRIETO MD 03/26/2018 03/26/2018 [facility] Departed Emergency Room [id number] NITHIN JONES MD 06/20/2018 06/20/2018 [facility] Procedures Procedure Code Date Perfomer Comments Source Computed tomography of brain without radiopaque contrast [id number] 06/20/2018 IDA [facility] Tonsillectomy [facility] Assessment and Plan No Data Provided for This Section Plan of Care Plan of Care Date Source Discharge Date 06/20/18 8:26pm Disposition HOME, SELF-CARE Condition at Discharge Stable Instructions/Education Provided Hypertension Forms Provided Work/School Excuse Prescriptions See Medication Section Referrals RANDALL STEEL MD Order Date: Call for an appointment Address: [address] [place] [id number] Additional Instructions/Education Call for follow up appointment to see your medical provider or the referral listed. Take over the counter Motrin or Tylenol medication as needed for comfort. If prescribed medication on discharge, take the medication as prescribed and adhere to the warnings given for medication. As discussed at the bedside, drink fluids, rest and return to the emergency department for any fever, shortness of breath, chest pain, abdominal pain, trouble handling oral secretions or any new concerns. 06/21/2018 [facility] Discharge Date 03/26/18 11:55am Disposition HOME, SELF-CARE Condition at Discharge Stable Instructions/Education Provided Hypertension Forms Provided Work/School Excuse Prescriptions See Medication Section Referrals MOOKIE DE LOS SANTOS MD Order Date: Call for an appointment Address: [address] [place] [address] Additional Instructions/Education YOUR DIAGNOSIS TODAY IS UNCONTROLLED ESSENTIAL HYPERTENSION TAKE LISINOPRIL PRESCRIBED KEEP BLOOD PRESSURE DIARY INSTRUCTED BY ER SCHEDULE AN APPOINTMENT WITH A PRIMARY CARE PHYSICIAN 03/26/2018 [facility] Social History Social History Date Source Smoking Status Start Date Stop Date Current every day smoker 06/21/2018 [facility] Smoking Status Current Every Day Smoker 03/11/2018 [facility] Family History No Data Provided for This Section Advance Directives Order Name Results Value Date Source Advance Directives Advance Directives Directive Response Recorded Date/Time Does the patient have an advance directive? No 09/13/10 9:09pm If yes, is advance directive on file with [facility]? No 06/20/18 4:25pm If not on file with [facility] will patient provide a copy? No 06/20/18 4:25pm Do you have a Directive to Physician? No 06/20/18 4:25pm Do you have a Medical Power of [employer]? No 06/20/18 4:25pm Do you have an out of hospital Do Not Resuscitate Order? No 06/20/18 4:25pm Do you have any special needs we should be aware of? No 06/20/18 4:25pm Do you have a support person here with you today? Yes 06/20/18 4:25pm Did patient receive Notice of Privacy Practices? Yes 06/20/18 4:25pm Did patient receive patient rights and responsibilities? Yes 06/20/18 4:25pm 06/21/2018 [facility] Advance Directives Advance Directives Directive Response Recorded Date/Time Does the patient have an advance directive? No 09/13/10 9:09pm Do you have a Directive to Physician? No 03/26/18 10:53am Do you have a Medical Power of [employer]? No 03/26/18 10:53am Do you have an out of hospital Do Not Resuscitate Order? No 03/26/18 10:53am Do you have any special needs we should be aware of? No 03/26/18 10:53am Do you have a support person here with you today? Yes 03/26/18 10:53am Did patient receive Notice of Privacy Practices? Yes 03/26/18 10:53am Did patient receive patient rights and responsibilities? Yes 03/26/18 10:53am 03/26/2018 [facility] Functional Status No Data Provided for This Section
--- OUTSIDE RECORDS SUMMARY | 2018-11-13 15:33 | XMS REPORT ---
Author Author [facility] Address Unknown Phone Unavailable Care Team Providers Care Mash Grinder Name Role Phone Nisa PRIETO Unavailable Unavailable Problems This patient has no known problems. Allergies, Adverse Reactions, Alerts This patient has no known allergies or adverse reactions. Medications This patient has no known medications. Results Test Description Test Time Test Comments Text Results Atomic Results Result Comments CHEST SINGLE (PORTABLE) 2018-06-20 17:04:00 [place] [id number] Patient Name: RANDALL TIRADO MR #: [id number] : 1990 Age/Sex: 27/M Req #: [id number] Adm Physician: Ordered by: LOLI PRIETO MD Report #: [id number] Location: ER Room/Bed: Procedure: [id number] DX/CHEST SINGLE (PORTABLE) Exam Date: 06/20/18 Exam Time: 1630 REPORT STATUS: Signed EXAM: CHEST SINGLE (PORTABLE) DATE: 06/20/2018 3:52 PM INDICATION: Chest pain COMPARISON: None FINDINGS: Lines and tubes: None Heart size normal. No focal pulmonary opacity, pleural effusion or pneumothorax. Lung apices are not completely included on the image. Upper abdomen unremarkable with no free air. No acute bony abnormality. IMPRESSION: No evidence for acute disease. Signed by: Severino Murillo M.D. on 06/20/2018 5:06 PM Dictated By: LOLI MURILLO MD 05 Transcribed By: HARLEY on 06/20/181705 COPY TO: LOLI PRIETO MD CT BRAIN WO 2018-06-20 17:01:00 [place] [address] Patient Name: RANDALL TIRADO MR #: [id number] : 1990 Age/Sex: 27/M Req #: [id number] Adm Physician: Ordered by: LOLI PRIETO MD Report #: [id number] Location: ER Room/Bed: Procedure: [id number] CT/CT BRAIN WO Exam Date: 06/20/18 Exam Time: 1640 REPORT STATUS: Signed Examination: CT BRAIN WITHOUT CONTRAST History:Dizziness. Elevated blood pressure. Comparison studies:None Technique: Axial images were obtained from the skull base to the vertex. Coronal and sagittal images reconstructed from the axial data. Dose modulation, iterative reconstruction, and/or weight based adjustment of the mA/kV was utilized to reduce the radiation dose to as low as reasonably achievable. Intravenous contrast: None Findings: Scalp: No abnormalities. Bones: No fractures, blastic or lytic lesions. Brain sulci: Appropriate for age. Ventricles: Normal in size and configuration. No hydrocephalus. Extra-axial space: No abnormalities. Parenchyma: Hypoplastic vermis. No masses, hemorrhage, or acute or chronic cortical based vascular insults.. Sellar/suprasellar region: No abnormalities. Craniocervical junction: Patent foramen magnum. No Chiari one malformation. Incidental findings: None. Impression: No acute intracranial abnormalities. Signed by: Dr. Marjan Kothari M.D. on 06/20/2018 5:02 PM Dictated By: MARJAN JUARES MD 01 Transcribed By: HARLEY on 06/20/181701 COPY TO: LOLI PRIETO MD
[2018-11-13] MEDS ORDERED: NIFEDIPINE 10 MG CAP PO ONE ×2 (16:09→19:14)
== END 2018-11-13 19:09 | disposition left against medical advice (07) ==
LOC: ER 15:31
DX: I10 Essential (primary) hypertension (principal)

== ENCOUNTER 2020-07-08 15:57 | Emergency (ER) | payer BC ==
[~2020-07-08] VITALS: Ht 177.8 cm; Wt 93.0 kg
== END 2020-07-08 16:42 | disposition home or self-care (01) ==
LOC: ER 16:38
DX: R07.9 Chest pain, unspecified (principal); R06.02 Shortness of breath; R94.31 Abnormal electrocardiogram [ECG] [EKG]
CPT/HCPCS: 93005; 99282